=== PATIENT | female | born 1970 | race Caucasian/White ===

== ENCOUNTER → 2017-12-12 | Outpatient (CLI) | payer BC ==
[~2017-12-12] MED LIST: BENTYL10 MG PO; FLEXERIL10 MG PO; HYDROCODON-ACE1 EAC7 PO; TURMERIC500 MG PO
== END | disposition home or self-care (01) ==
LOC: NUC 12-06 13:00
DX: R31.9 Hematuria, unspecified (principal); R10.11 Right upper quadrant pain
CPT/HCPCS: 78227; A9537

== ENCOUNTER 2018-04-01 09:32 | Observation (INO) | payer BC ==
[~2018-04-01] VITALS: Ht 157.5 cm; Wt 80.8 kg
[2018-04-01 10:26] LABS: HEMATOCRIT 39.4 % (36.0-46.0); HEMOGLOBIN 13.7 G/DL (11.9-15.5); MCH 30.9 PG (29.0-34.0); MCHC 34.8 G/DL (30.0-36.0); MCV 88.7 FL (83-99); PLATELET COUNT 267 K/uL (156-360); RBC DIS.WIDTH-CV 11.8 % (11.8-14.6); RBC DIS.WIDTH-SD 37.7 % (39-53); RED BLOOD COUNT 4.44 M/uL (3.80-5.20)
[2018-04-01 10:35] LABS: CHLORIDE 105 mEq/L (99-109); POTASSIUM 4.1 mEq/L (3.7-5.4); SODIUM 142 mEq/L (136-147)
[2018-04-01 10:36] LABS: GLUCOSE 90 mg/dL (70-99)
[2018-04-01 10:40] LABS: GFR ESTIMATE (CALCULATED) > 59 mL/min/
[2018-04-01 10:41] LABS: UREA NITROGEN (BUN) 11 mg/dL (9-23)
[2018-04-01 10:46] LABS: TROP-I INTERPRETATION NEGATIVE; TROPONIN-I < 0.01 ng/mL (0.0-0.30)
[2018-04-01] MEDS ORDERED: WELCHOL625 MG PO (11:26)
[2018-04-01] MEDS ORDERED: CYANOCOBALAM1000 MCG PO (11:26)
[2018-04-01] MEDS ORDERED: EVENING PRIMR1000 MG PO (11:26)
[2018-04-01] MEDS ORDERED: FISH OIL 1,0001 EAC7 PO (11:27)
[2018-04-01] MEDS ORDERED: CLARITIN,ALAVAR10 MG PO (11:27)
[2018-04-01 11:58] LABS: D-DIMER ELISA < 150.00 ng/mLDDU (<230)
[2018-04-01 13:20] VITALS: BP 140/78
[2018-04-01 15:27] VITALS: BP 128/76
[2018-04-01 16:22] LABS: TROP-I INTERPRETATION NEGATIVE; TROPONIN-I < 0.01 ng/mL (0.0-0.30)
[2018-04-01 19:00] VITALS: BP 129/74
[2018-04-01 23:12] VITALS: BP 132/73
[2018-04-01 23:28] LABS: TROP-I INTERPRETATION NEGATIVE; TROPONIN-I < 0.01 ng/mL (0.0-0.30)
[2018-04-02 03:28] VITALS: BP 110/58
[2018-04-02 07:44] VITALS: BP 112/62
[2018-04-02] MEDS ORDERED: ASPIR-LOW81 MG PO (11:44)
[2018-04-02 11:59] VITALS: BP 129/66
== END 2018-04-02 12:36 | disposition home or self-care (01) ==
LOC: EME 09:32 → 4SOUTH 11:07 → EDOF 11:07 → ENRESERV 11:09 → 4SOUTH 13:09
PROVIDERS: Internal Medicine
DX: R07.9 Chest pain, unspecified (principal); K50.90 Crohn's disease, unspecified, without complications; J30.9 Allergic rhinitis, unspecified; Z90.49 Acquired absence of other specified parts of digestive tract; Z82.49 Family history of ischemic heart disease and other diseases of the circulatory system; Z82.5 Family history of asthma and other chronic lower respiratory diseases
CPT/HCPCS: 71046; 80048; 84484; 85027; 85379; 93005; 99281; 99284; G0378